=== PATIENT | female | born 1950 | race Caucasian/White ===

== ENCOUNTER → 2016-09-15 | Outpatient (REF) | payer BC ==
[~2016-09-15] MED LIST: AMIO200T2 PO; ASCO500T20 PO; ATOR40TA59 PO; CALC500T55 PO; CARV12.5 PO; DGX.25T PO; DILT360T11 PO; ENXP80I.8 SC; FLAX1000 PO; FURO40TA4 PO; KRIL1CAP19 PO; LEVO50TA6 PO; METO50TA7 PO; MULT-305 PO; NFLOSA25TA PO; OMG1KC PO; UBID50TA PO; WRF2.5T PO
== END ==
LOC: LAB 13:41
PROVIDERS: ATTEND Family Medicine
DX: I48.2 Chronic atrial fibrillation (principal); I50.22 Chronic systolic (congestive) heart failure
CPT/HCPCS: 84484

== ENCOUNTER 2016-09-20 10:49 | Observation (INO) | payer BC ==
[~2016-09-20] VITALS: Ht 170.2 cm; Wt 73.1 kg
[2016-09-20 11:08] VITALS: BP 92/66
[2016-09-20] MEDS ORDERED: SODIUM CHLORIDE FLUSH 30 ML ONE (11:15)
[2016-09-20] MEDS ORDERED: DIGOXIN 0.25 MG/ML (LANOXIN) 2 ML AMP IV ONE (11:55)
[2016-09-20] MEDS ORDERED: ONDANSETRON 2 MG/ML (Z0FRAN) 2 ML VIAL IV PRN (12:00)
[2016-09-20] MEDS ORDERED: ACETAMINOPHEN 325 MG TAB (TYLENOL) PO PRN (12:00)
[2016-09-20 12:20] LABS: BASOPHILS % (AUTO) 0 % (0-2); EOSINOPHILS # (AUTO) 0.2 10^3uL; EOSINOPHILS % (AUTO) 2 % (0-4); LYMPHOCYTES # (AUTO) 1.6 X10^3; MEAN CORPUSCULAR HEMOGLOBIN 29.7 PG (26.0-34.0); MEAN CORPUSCULAR HGB CONC 33.4 g/dL (31.0-37.0); MEAN CORPUSCULAR VOLUME 89 FL (80-100); MEAN PLATELET VOLUME 9.3 FL (6.0-9.5); MONOCYTES # (AUTO) 0.8 X10^3; MONOCYTES % (AUTO) 9 % (3-11); NEUTROPHILS # (AUTO) 6.5 X10^3; NEUTROPHILS % (AUTO) 71 % (51-67); PLATELET COUNT 240 10^3uL (150-450); WHITE BLOOD COUNT 9.08 10^3uL (4.0-11.0)
[2016-09-20 12:34] LABS: ALBUMIN 3.7 g/dL (3.4-5.0); ALKALINE PHOSPHATASE 129 U/L (38-126); ANION GAP 13.8 MEQ/L (3-15); BUN/CREATININE RATIO 19 (10-20); CALCULATED IONIZED CALCIUM 4.2 mg/dL (3.8-4.6); TOTAL PROTEIN 6.6 g/dL (6.4-8.5)
[2016-09-20 14:00] VITALS: BP 87/51
[2016-09-20] MEDS ORDERED: NS FLUSH 3 ML PRN IV (15:15)
[2016-09-20] MEDS ORDERED: NS FLUSH 10 ML PRN IV (15:15)
[2016-09-20 16:00] VITALS: BP 102/62
[2016-09-20 18:00] VITALS: BP 137/88
[2016-09-20 20:00] VITALS: BP 108/86
[2016-09-20] MEDS: DIGOXIN 0.25 MG/ML (LANOXIN) 2 ML AMP IV SCH (20:22)
[2016-09-20 22:00] VITALS: BP 110/79
[2016-09-21] VITALS (7 sets, daily range): BP systolic 93–124; BP diastolic 58–81
[2016-09-21] MEDS: DIGOXIN 0.25 MG/ML (LANOXIN) 2 ML AMP IV SCH (04:32)
[2016-09-21 06:26] LABS: MEAN CORPUSCULAR HEMOGLOBIN 29.7 PG (26.0-34.0); MEAN CORPUSCULAR HGB CONC 33.4 g/dL (31.0-37.0); MEAN CORPUSCULAR VOLUME 89 FL (80-100); MEAN PLATELET VOLUME 9.4 FL (6.0-9.5); PLATELET COUNT 276 10^3uL (150-450); WHITE BLOOD COUNT 8.78 10^3uL (4.0-11.0)
[2016-09-21 06:44] LABS: ALBUMIN 3.8 g/dL (3.4-5.0); ANION GAP 14.1 MEQ/L (3-15); MAGNESIUM* 2.1 mg/dL (1.6-2.3); PHOSPHORUS 4.2 mg/dL (2.4-4.9)
[2016-09-21 07:08] LABS: SEGMENTED NEUTROPHILS % 45 % (51-67)
[2016-09-21 07:09] LABS: BAND NEUTROPHILS % 5 % (0-6); EOSINOPHILS % 3 % (0-4); LYMPHOCYTES # 3.2 #; MONOCYTES # 0.8 #; MONOCYTES % 10 % (3-11); RBC MORPH NORMAL (NORMAL); TOTAL CELLS COUNTED 100
[2016-09-21] MEDS ORDERED: ONDANSETRON 4 MG (ZOFRAN) ORAL DISSOLVE TAB PO PRN (08:30)
[2016-09-21] MEDS ORDERED: CALCIUM CARBONATE CHEWABLE 300 MG (TUMS) TABLET PO PRN (08:30)
[2016-09-21] MEDS ORDERED: PROMETHAZINE HCL INJ 12.5 MG in SODIUM CHLORIDE 25 ML IV PRN (08:30)
[2016-09-21] MEDS ORDERED: DOCUSATE SODIUM 100 MG (COLACE) CAP PO PRN (08:30)
[2016-09-21] MEDS ORDERED: ASCORBIC ACID 500 MG (VITAMIN C) TABLET PO PRN (08:30)
[2016-09-21] MEDS ORDERED: POLYETHYLENE GLYCOL 17 GM (MIRALAX) PACKET PO PRN (08:30)
[2016-09-21] MEDS ORDERED: MAG HYDROX/AL HYDROX/SIMETH 200-200-20/5 ML (MAG-AL PLUS) 30 ML UDC PO PRN (08:30)
[2016-09-21] MEDS ORDERED: MAGNESIUM HYDROXIDE 80MG/ML (MILK OF MAGNESIA) 30 ML UDC PO PRN (08:30)
[2016-09-21] MEDS ORDERED: FLAXSEED 1000 MG PO SCH (09:00)
[2016-09-21] MEDS: CARVEDILOL 12.5 MG (COREG) TABLET PO SCH ×2 (09:00→18:13)
[2016-09-21] MEDS ORDERED: NS FLUSH 3 ML DAILY IV SCH (09:00)
[2016-09-21] MEDS ORDERED: DIGOXIN 0.25 MG (LANOXIN) TAB PO SCH (09:00)
[2016-09-21] MEDS: SODIUM CHLORIDE FLUSH 3 ML SYR IV SCH (10:00)
[2016-09-21] MEDS: warFARin 2.5 MG (COUMADIN) TAB PO SCH (10:01)
[2016-09-21] MEDS: AMIODARONE 200 MG (CORDARONE) TAB PO SCH (10:01)
[2016-09-21] MEDS: LOSARTAN 25 MG (COZAAR) TABLET PO SCH (10:01)
[2016-09-21] MEDS: DIGOXIN 0.25 MG (LANOXIN) TAB PO SCH (10:02)
[2016-09-21] MEDS: LEVOTHYROXINE 50 MCG (LEVOTHROID) TABLET PO SCH (10:02)
[2016-09-21] MEDS: COENZYME Q10 100 MG CAPSULE PO SCH (10:02)
[2016-09-21] MEDS ORDERED: ONDANSETRON 2 MG/ML (Z0FRAN) 2 ML VIAL IV PRN (12:00)
[2016-09-21] MEDS ORDERED: ACETAMINOPHEN 325 MG TAB (TYLENOL) PO PRN (12:00)
[2016-09-21] MEDS ORDERED: SODIUM CHLORIDE FLUSH 3 ML SYR IV PRN (15:15)
[2016-09-21] MEDS ORDERED: SODIUM CHLORIDE FLUSH 10 ML SYR IV PRN (15:15)
[2016-09-21] MEDS ORDERED: ATORVASTATIN 40 MG (LIPITOR) TABLET PO SCH (21:00)
[2016-09-22 00:19] VITALS: BP 118/74
[2016-09-22 03:32] VITALS: BP 125/75
[2016-09-22] MEDS: LEVOTHYROXINE 50 MCG (LEVOTHROID) TABLET PO SCH (06:23)
[2016-09-22 07:14] LABS: ALBUMIN 3.7 g/dL (3.4-5.0); ANION GAP 14.3 MEQ/L (3-15); PHOSPHORUS 4.1 mg/dL (2.4-4.9)
[2016-09-22 07:33] VITALS: BP 110/72
[2016-09-22] MEDS: SODIUM CHLORIDE FLUSH 3 ML SYR IV SCH (08:25)
[2016-09-22] MEDS: warFARin 2.5 MG (COUMADIN) TAB PO SCH (08:28)
[2016-09-22] MEDS: LOSARTAN 25 MG (COZAAR) TABLET PO SCH (08:28)
[2016-09-22] MEDS: CARVEDILOL 12.5 MG (COREG) TABLET PO SCH (08:28)
[2016-09-22] MEDS: COENZYME Q10 100 MG CAPSULE PO SCH (08:28)
[2016-09-22] MEDS: DIGOXIN 0.25 MG (LANOXIN) TAB PO SCH (08:28)
[2016-09-22] MEDS: AMIODARONE 200 MG (CORDARONE) TAB PO SCH (08:28)
[2016-09-22 11:19] VITALS: BP 147/70
== END 2016-09-22 13:03 | disposition home or self-care (01) ==
LOC: INTOOBSV 10:49 → ICU 10:49 → UNDOADMOB 10:49 → MED/SURG 10:50 → INTOOBSV 09-21 11:02 → MED/SURG 09-21 11:02 → ICU 09-21 11:02 → OBSVTOIN 09-21 11:02
PROVIDERS: ADMIT Family Medicine; ATTEND Family Medicine
DX: I48.92 Unspecified atrial flutter (principal); I48.91 Unspecified atrial fibrillation; I50.23 Acute on chronic systolic (congestive) heart failure; E78.5 Hyperlipidemia, unspecified; E02 Subclinical iodine-deficiency hypothyroidism; M25.512 Pain in left shoulder; Z79.01 Long term (current) use of anticoagulants
CPT/HCPCS: 36415; 71020; 80053; 80069; 83735; 83880; 84443; 84484; 85007; 85025; 85027; 85610; 93005; 96374; 96376; 99218; J1160

== ENCOUNTER → 2016-09-23 | Outpatient (CLI) | payer BC | LOC: LAB 11:04 | PROVIDERS: ATTEND Internal Medicine | DX: I48.91 Unspecified atrial fibrillation (principal) | CPT/HCPCS: 36415; 85610 ==